=== PATIENT | male | born 1935 | race Two or more races ===

== ENCOUNTER 2024-04-20 18:33 | Inpatient (IN) | payer OTHER, MEDICARE ==
[~2024-04-20] VITALS: Ht 167.6 cm; Wt 58.9 kg
--- NOTE | 2024-04-20 18:48 | ECG ---
[facility] Test Date: 2024-04-20 Test Time: 18:40:18 Pat Name: ANALILIA SOLOMON Department: er Room: 0220T Gender: M Pharmacist Manager: gp : 1935 Requested By: KIMBER CRUZ Order Number: [id number] Reading MD: Len Pires Measurements Intervals [place] Rate: 67 P: 125 [place]: 210 QRS: -29 QRSD: 134 T: 100 QT: 500 QTc: 528 Interpretive Statements Atrial-ventricular dual-paced rhythm No further analysis attempted due to paced rhythm Electronically Signed On 04-22-2024 17:48:02 PST by Len Pires Please click the below link to view image of tracing.
--- NOTE | 2024-04-20 18:56 | ED.PDOC ---
HPI Comments HPI: Poor Historian. 88-year-old male brought in by ambulance from per 's/caregiver request stating that the patient is having chest pain and shortness of breath/congestion. Patient himself denies any symptoms. No family members available at bedside at this time. Per EMS vital signs were stable prior to arrival. Vitals: temperature of 98.9F, respiratory rate of 16, SpO2 of 100%RA, pulse rate of 66, blood pressure of 118/87. Past Medical History: Alzheimer's, MVP, COPD, HLD Past Surgical History: pacemaker, CABG REVIEW OF SYSTEMS: CONSTITUTIONAL: Denies acute: fever, diaphoresis, chills, HEAD: Denies acute: headache, photophobia Eyes: Denies acute: Double vision, vision loss, eye pain, eye discharge. EARS: Denies acute: tinnitus, hearing loss, ear discharge, ear pain, THROAT: Denies acute: sore throat, swelling, difficulty swallowing , pain with swallowing, change in voice. NECK: Denies acute: neck pain, neck swelling, stiff neck. HEART: Denies acute : palpitations, LUNGS: Denies acute: wheezing, cough, hemoptysis ABDOMEN: Denies acute: abdominal pain, Nausea, Vomiting, diarrhea, melena , hematemesis, hematochezia SKIN: Denies acute: rash, redness, lesions, itchiness. EXTREMITIES: Denies acute: calf pain, numbness, tingling, weakness, denies pain in extremity. Denies acute: Low back pain. Neuro: Denies acute: focal neurological deficit, motor or sensory focal neurological deficit, tremors, seizure like activity, confusion, dizziness, change in mental status, loss of bowel or bladder function, cauda equina like symptoms. : Denies acute: dysuria, hematuria, flank pain, increase in urinary frequency. PSYCH: Denies acute: hallucination, suicidal ideation, homicidal ideation. PHYSICAL EXAM: General: no acute distress, awake and alert. Head: normocephalic, atraumatic. Neck: supple, trachea is midline, no swelling. Throat: Normal phonation. Eyes:, no erythema, no purulent discharge, no proptosis, no icterus. Heart: regular rate, regular rhythm, no significant murmur appreciated. Noted mechanical click Lungs: no apparent respiratory distress, Able to speak in full sentences. No wheezing, no rhonchi, no crackles. No stridors Clear to auscultation bilaterally. Abdomen: non tender to palpation, non distended, soft, no guarding, no rebound, + bowel sounds. Neuro: Awake, Alert, oriented to name, self, situation, follows commands GCS=15. Speech is normal. Skin: no petechia, no purpura, no cyanosis, non-pale, not jaundice. Lower extremities: --no - Pitting edema no deformity, no focal swelling, no calf TTP. Makes eye contact. moves all four extremities. Face: no apparent facial droop. ED COURSE: Time Seen by MD: 18:37 Reviewed Notes: Nurses Notes, Allergies Allergies: Coded Allergies: Acetaminophen (Verified Allergy, Unknown, 04/20/24) Hydrocodone (Verified Allergy, Unknown, 04/20/24) Uncoded Allergies: prosac (Allergy, Unknown, 04/20/24) Information Source: Patient Was a procedure done? Was a procedure done?: No CP Differential Dx Differential Diagnosis: N/A Differential Diagnosis: Other (Ddx include but not limitied to gastritis, musculoskeletal pain, radiculopathy, atypical chest pain, dissection, aneurysm, ACS, unstable angina, hiatal hernia, GERD, anxiety, costochondritis, PE, pneumothroax, neoplasm, cardiac ischemia, drug abuse, anemia.) X-Ray, Labs, Meds, VS Vital Signs Date Time Temp Pulse Resp B/P (MAP) Pulse Ox O2 Delivery O2 Flow Rate FiO2 04/20/24 22:10 67 20 144/67 (92) 100 04/20/24 22:10 67 20 100 Nasal Cannula* 2 28 04/20/24 20:42 97.0 72 16 149/73 (98) 93 97.0 04/20/24 18:53 67 04/20/24 18:40 98.9 66 16 118/87 (97) 100 Lab Test 04/20/24 22:06 04/20/24 19:56 04/20/24 19:03 04/20/24 18:50 Range/Units Troponin I High Sensitivity 6 5 5 </=54 ng/L White Blood Count 7.4 4.4-10.8 10^3/uL Red Blood Count 4.67 4.5-5.90 10^6/uL Hemoglobin 13.6 13.5-17.5 g/dL Hematocrit 39.9 L 41.0-53.0 % Mean Corpuscular Volume 85.5 80.0-100.0 fL Mean Corpuscular Hemoglobin 29.1 28.0-32.0 pg Mean Corpuscular Hemoglobin Concent 34.0 32.0-36.0 g/dL Red Cell Distribution Width 15.2 H 11.8-14.3 % Platelet Count 205 140-450 10^3/uL Mean Platelet Volume 7.0 6.9-10.8 fL Neutrophils (%) (Auto) 63.2 37.0-80.0 % Lymphocytes (%) (Auto) 17.7 10.0-50.0 % Monocytes (%) (Auto) 14.5 H 0.0-12.0 % Eosinophils (%) (Auto) 3.2 0.0-7.0 % Basophils (%) (Auto) 1.4 0.0-2.0 % Neutrophils # (Auto) 4.7 1.6-8.6 10 ^3/uL Lymphocytes # (Auto) 1.3 0.4-5.4 10 ^3/uL Monocytes # (Auto) 1.1 0-1.3 10 ^3/uL Eosinophils # (Auto) 0.2 0-0.8 10 ^3/uL Basophils # (Auto) 0.1 0-0.2 10 ^3/uL Nucleated Red Blood Cells 0.1 % Prothrombin Time 34.5 H 9.3-11.8 sec Prothrombin Time INR 3.71 H 0.9-1.15 Activated Partial Thromboplast Time 35.9 H 24.5-34.5 SEC Sodium Level 140 136-145 mmol/L Potassium Level 4.4 3.5-5.1 mmol/L Chloride Level 105 98-107 mmol/L Carbon Dioxide Level 28 20-31 mmol/L Anion Gap 7 5-15 Blood Urea Nitrogen 18 9-23 mg/dL Creatinine 1.20 0.700-1.30 mg/dL Glomerular Filtration Rate Calc 59 >90 mL/min BUN/Creatinine Ratio 15.0 10.0-20.0 Serum Glucose 140 H 74-106 mg/dL Calcium Level 9.9 8.7-10.4 mg/dL Total Bilirubin 0.4 0.2-1.0 mg/dL Aspartate Amino Transferase (AST) 14 13-40 U/L Alanine Aminotransferase (ALT) 14 7-40 U/L Alkaline Phosphatase 59 46-116 U/L B-Type Natriuretic Peptide 147.10 0-100 pg/mL Total Protein 6.8 5.7-8.2 g/dL Albumin 4.1 3.2-4.8 g/dL Lactic Acid Level 1.3 0.4-2.0 mmol/L [facility] [id number] [place] [address] Ph: [phone] DIAGNOSTIC IMAGING Diagnostic Imaging Report : [id number] Signed PATIENT: ANALILIA SOLOMON ACCT: [id number] UNIT: [id number] : 1935 LOC: ER ROOM / BED: / AGE / SEX: 88 / M ADM STATUS: REG ER SERVICE 44 ORDERING PHYSICIAN: KIMBER CRUZ DO PROCEDURE(s): CXRP - CHEST PORTABLE REASON: cp/sob ORDER NUMBER(s): [id number], ACCESSION NUMBER(s): [id number] EXAM: XY CHEST PORTABLE TECHNIQUE: Single frontal chest radiograph CLINICAL HISTORY: cp/sob COMPARISON: None Findings/Impression: Frontal chest radiograph demonstrates no acute osseous or superficial soft tissue abnormalities. Left chest wall dual chamber pacemaker. The trachea is midline. The cardiac silhouette and mediastinum are within normal limits. Right upper lung field pleural plaques. No pneumothorax, pleural effusions, or consolidations. ATED BY: ALINA RIVAS DO DICTATED DATE/TIME: 04/20/241916 SIGNED BY: ALINA RIVAS DO SIGNED DATE/TIME: 04/20/241916 CC: Time of 1ST Reevaluation: 02:44 Reevaluation 1ST: Resolved Patient Education/Counseling: Diagnosis, Treatment Family Education/Counseling: No Family Present Comments Patient presented with the above HPI.--chest pain/shortness of---workup was initiated. patient was found with the above mentioned diagnosis. the following medications were ordered: please refer to order lists of meds and tests obtained by myself Dr. Cruz. Patient ED course and VS have been stabilized. Patient has been reassessed in the ED and remained in a stable condition. Patient/family voices understanding and is agreeable with plan. Patient has been observed in the ED adequate length of time to insure improvement/stability. Escalation of care considered: Consideration of escalation to observation or admission Patient was ADMITTED to the medicine team for further evaluation and treatment of their presentation. Patient was already on Coumadin. All the reports of any imaging studies that were ordered by myself were reviewed by myself. Departure 1 Departure Time of Disposition: 22:33 Impression: Primary Impression: Chest pain Disposition: ADMITTED INPATIENT Admit to: Tele Condition: Guarded Discharged With: Self Critical Care Note Critical Care Time?: No Heart Score Heart Score: Heart Score Response (Comments) Value History Slightly Suspicious 0 EKG N/A 0 Age >65 2 Risk Factors 1 or 2 risk factors 1 Troponin Normal limit 0 Total 3 I personally scribed for KIMBER CRUZ DO ([email or web address]) on 04/20/24 at 19:36. Electronically submitted by Anthony Rodriguez ([email or web address]). I personally scribed for KIMBER CRUZ DO ([email or web address]) on 04/20/24 at 19:48. Electronically submitted by Anthony Rodriguez [email or web address]). KIMBER CRUZ DO Apr 20, 2024 18:56
--- NOTE | 2024-04-20 19:19 | DVH ---
EXAM: XY CHEST PORTABLE TECHNIQUE: Single frontal chest radiograph CLINICAL HISTORY: cp/sob COMPARISON: None Findings/Impression: Frontal chest radiograph demonstrates no acute osseous or superficial soft tissue abnormalities. Left chest wall dual chamber pacemaker. The trachea is midline. The cardiac silhouette and mediastinum are within normal limits. Right upper lung field pleural plaques. No pneumothorax, pleural effusions, or consolidations.
[2024-04-20 19:31] LABS: Basophils # (auto) 0.1 10 ^3/uL (0-0.2); Basophils % (auto) 1.4 % (0.0-2.0); Eosinophils # (auto) 0.2 10 ^3/uL (0-0.8); Eosinophils % (auto) 3.2 % (0.0-7.0); Hematocrit 39.9 % (41.0-53.0); Hemoglobin 13.6 g/dL (13.5-17.5); Lymphocytes # (auto) 1.3 10 ^3/uL (0.4-5.4); Lymphocytes % (auto) 17.7 % (10.0-50.0); Mean Corpuscular Hemoglobin 29.1 pg (28.0-32.0); Mean Corpuscular Volume 85.5 fL (80.0-100.0); Monocytes # (auto) 1.1 10 ^3/uL (0-1.3); Monocytes % (auto) 14.5 % (0.0-12.0); Neutrophils # (auto) 4.7 10 ^3/uL (1.6-8.6); Neutrophils % (auto) 63.2 % (37.0-80.0); Nucleated Red Blood Cells % 0.1 %; Platelet Count (auto) 205 10^3/uL (140-450); Red Blood Cells 4.67 10^6/uL (4.5-5.90); Red Cell Distribution Width 15.2 % (11.8-14.3); White Blood Cell 7.4 10^3/uL (4.4-10.8)
[2024-04-20 19:46] LABS: INR 3.71 (0.9-1.15); Partial Thromboplastin Time 35.9 SEC (24.5-34.5); Prothrombin Time 34.5 sec (9.3-11.8)
[2024-04-20 19:54] LABS: Alanine Aminotransferase 14 U/L (7-40); Albumin 4.1 g/dL (3.2-4.8); Alkaline Phosphatase 59 U/L (46-116); Anion Gap 7 (5-15); Aspartate Aminotransferase 14 U/L (13-40); Bilirubin, Total 0.4 mg/dL (0.2-1.0); Blood Urea Nitrogen 18 mg/dL (9-23); Calcium 9.9 mg/dL (8.7-10.4); Carbon Dioxide 28 mmol/L (20-31); Chloride 105 mmol/L (98-107); Potassium 4.4 mmol/L (3.5-5.1); Sodium 140 mmol/L (136-145); Total Protein 6.8 g/dL (5.7-8.2)
[2024-04-20 20:05] LABS: Glucose 140 mg/dL (74-106)
[2024-04-20 22:10] VITALS: PULSE 67; RESP 20; O2SAT 100
--- NOTE | 2024-04-20 22:56 | DVHHP2 ---
History of Present Illness Reason for Visit: Chest pain History of Present Illness The patient is a 88-year-old male with past medical history of Alzheimer's disease, COPD, HLD, and MVP presented to [facility] ED accompanied by /caregiver for evaluation of chest pain shortness of breaths, and congest ion. Patient was seen and evaluated in the ED, laboratory data shows WBC 7.4, platelets 205, sodium 140, potassium 4.4,, BUN 18, creatinine 1.20, GFR 59, glucose 140, troponin 5, lactic acid 1.3, BNP 147.10, PTT 34.5 INR 3.71, PTT 35.9, blood pressure 149/73, heart rate 72, temperature 97.2 F, O2 saturation 93% oxygen. Chest x-ray show no pneumothorax, pleural effusions or consol idations. Please see medication orders section in the computer. On my assessment, patient denied chest pain, no, no dizziness, currently on oxygen, no nausea, no vomiting, no fever, no chills. Patient was admitted for further evaluation and medical management. Past Medical History Alzheimer's, MVP, COPD, HLD Past Surgical History Pacemaker, CABG Family History Reviewed, noncontributory to the management of this case. Past Social History The patient lives at home, denies smoking, alcohol or illicit drugs abuse. Review of Systems Constitutional: Yes: Weakness; No: Fever, Chills, Sweats, Malaise, Other Eyes: No: Pain, Vision change, Conjunctivae inflammation, Eyelid inflammation, Other, Redness ENT: No: Ear pain, Ear discharge, Nose pain, Nose discharge, Nose congestion, Mouth pain, Mouth swelling, Throat pain, Throat swelling, Other Respiratory: No: Cough, Dry, Shortness of breath, SOB with excertion, Wheezing, Hemoptysis, Pleuritic Pain, Sputum, Wheezing, Other Cardiovascular: Chest Pain; No: Palpitations, Orthopnea, Paroxysmal Noc. Dyspnea, Edema, Lt Headedness, Other Gastrointestinal: No: Nausea, Vomiting, Abdominal Pain, Diarrhea, Constipation, Melena, Hematochezia, Other Genitourinary: No Dysuria, No Frequency, No Incontinence, No Hematuria, No Retention, No Other Musculoskeletal: No: other, neck pain, shoulder pain, arm pain, back pain, hand pain, leg pain, foot pain Skin: No: Rash, Lesions, Jaundice, Bruising, Other Neurological: No: Weakness, Numbness, Incoordination, Change in speech, Confusion, Seizures, Other Allergies: Coded Allergies: Acetaminophen (Verified Allergy, Unknown, 04/20/24) Hydrocodone (Verified Allergy, Unknown, 04/20/24) Uncoded Allergies: prosac (Allergy, Unknown, 04/20/24) Exam Vital Signs Vital Signs Date Time Temp Pulse Resp B/P (MAP) Pulse Ox O2 Delivery O2 Flow Rate FiO2 04/20/24 22:10 67 20 144/67 (92) 100 04/20/24 22:10 Nasal Cannula* 2 28 04/20/24 20:42 97.0 97.0 General Appearance: Alert, Oriented X3, Cooperative, No acute distress HEENT: Atraumatic, PERRLA, EOMI, Mucous membr. moist/pink Respiratory: Clear to auscultation, Normal air movement Cardiovascular: Regular rate, Normal S1, Normal S2, No murmurs Abdominal: Normal bowel sounds, Soft, No tenderness, No hepatospenomegaly, No masses Extremities: No clubbing, No cyanosis, No edema, Normal pulses, No tenderness/swelling Skin: No rashes, No breakdown, No significant lesion Neuro: Normal speech, Normal tone, Sensation intact, Cranial nerves 3-12 NL, Reflexes 2+ Psych/Mental Status: Mental status NL, Mood NL Labs/Xrays Labs Test 04/20/24 22:06 04/20/24 19:03 04/20/24 18:50 Range/Units Troponin I High Sensitivity 6 </=54 ng/L White Blood Count 7.4 4.4-10.8 10^3/uL Red Blood Count 4.67 4.5-5.90 10^6/uL Hemoglobin 13.6 13.5-17.5 g/dL Hematocrit 39.9 L 41.0-53.0 % Mean Corpuscular Volume 85.5 80.0-100.0 fL Mean Corpuscular Hemoglobin 29.1 28.0-32.0 pg Mean Corpuscular Hemoglobin Concent 34.0 32.0-36.0 g/dL Red Cell Distribution Width 15.2 H 11.8-14.3 % Platelet Count 205 140-450 10^3/uL Mean Platelet Volume 7.0 6.9-10.8 fL Neutrophils (%) (Auto) 63.2 37.0-80.0 % Lymphocytes (%) (Auto) 17.7 10.0-50.0 % Monocytes (%) (Auto) 14.5 H 0.0-12.0 % Eosinophils (%) (Auto) 3.2 0.0-7.0 % Basophils (%) (Auto) 1.4 0.0-2.0 % Neutrophils # (Auto) 4.7 1.6-8.6 10 ^3/uL Lymphocytes # (Auto) 1.3 0.4-5.4 10 ^3/uL Monocytes # (Auto) 1.1 0-1.3 10 ^3/uL Eosinophils # (Auto) 0.2 0-0.8 10 ^3/uL Basophils # (Auto) 0.1 0-0.2 10 ^3/uL Nucleated Red Blood Cells 0.1 % Prothrombin Time 34.5 H 9.3-11.8 sec Prothrombin Time INR 3.71 H 0.9-1.15 Activated Partial Thromboplast Time 35.9 H 24.5-34.5 SEC Sodium Level 140 136-145 mmol/L Potassium Level 4.4 3.5-5.1 mmol/L Chloride Level 105 98-107 mmol/L Carbon Dioxide Level 28 20-31 mmol/L Anion Gap 7 5-15 Blood Urea Nitrogen 18 9-23 mg/dL Creatinine 1.20 0.700-1.30 mg/dL Glomerular Filtration Rate Calc 59 >90 mL/min BUN/Creatinine Ratio 15.0 10.0-20.0 Serum Glucose 140 H 74-106 mg/dL Calcium Level 9.9 8.7-10.4 mg/dL Total Bilirubin 0.4 0.2-1.0 mg/dL Aspartate Amino Transferase (AST) 14 13-40 U/L Alanine Aminotransferase (ALT) 14 7-40 U/L Alkaline Phosphatase 59 46-116 U/L B-Type Natriuretic Peptide 147.10 0-100 pg/mL Total Protein 6.8 5.7-8.2 g/dL Albumin 4.1 3.2-4.8 g/dL Lactic Acid Level 1.3 0.4-2.0 mmol/L PATIENT: ANALILIA SOLOMON ACCT: [id number] UNIT: [id number] : 1935 LOC: ER ROOM / BED: / AGE / SEX: 88 / M ADM STATUS: REG ER SERVICE 1845 ORDERING PHYSICIAN: KIMBER CRUZ DO PROCEDURE(s): CXRP - CHEST PORTABLE REASON: cp/sob ORDER NUMBER(s): [id number], ACCESSION NUMBER(s): [id number] EXAM: XY CHEST PORTABLE TECHNIQUE: Single frontal chest radiograph CLINICAL HISTORY: cp/sob COMPARISON: None Findings/Impression: Frontal chest radiograph demonstrates no acute osseous or superficial soft tissue abnormalities. Left chest wall dual chamber pacemaker. The trachea is midline. The cardiac silhouette and mediastinum are within normal limits. Right upper lung field pleural plaques. No pneumothorax, pleural effusions, or consolidations. Assessment/Plan Assessment/Plan Chest pain Generalized weakness Plan 1. Admit to telemetry unit 2. Breathing treatment 3. Pain control management 4. Management of fluids and electrolytes 5. Consultation for hospitalist 6. Diagnostic tests chest x-ray 7. DVT prophylaxis-on SCDs 8. Repeat labs CBC, CMP in a.m. 9. Continue with current medical management 10. Treatment plan discussed with patient and RN. Patient verbalized understanding. Plan discussed with: Patient, Other (RN) My Orders Orders - SUSSY TORRES DNP Procedure Category Date Status Time Admit ADMIT 04/20/24 Verified 22:47 Allergies TURNER 04/20/24 Verified 22:47 Code Status CODE 04/20/24 Verified 22:47 Sodium Chloride Lock PHA 04/21/24 Verified (Saline Lock Ns) 06:00 Oxygen Per Hour RT 04/20/24 Verified 22:47 Ondansetron Hcl PHA 04/20/24 Verified (Zofran) 23:00 Docusate Sodium PHA 04/20/24 Verified Capsule (Colace 23:00 Fall Risk Precautions TURNER 04/20/[address] 22:47 Complete Blood Count LAB 04/21/24 Verified 04:00 Comprehensive LAB 04/21/24 Verified Metabolic Panel 04:00 Cardiac DIET 04/21/24 Verified Diet-2gna,Lofat,Lochol Breakfast Condition: Serious TURNER 04/20/24 Verified 22:47 Sequential TURNER 04/20/24 Verified Compression Device Nitroglycerin PHA 04/20/24 Verified Sublingual (Ntrostat 23:00 Stat Ekg For Chest TURNER 04/20/24 Verified Pain 22:47 Notify Md Of Changes TURNER 04/20/24 Verified From Base 22:47 Restaurant Hourly Manager For [facility] 04/20/24 Verified 24 Hours 22:47 Emergency Dysrhythmia [facility] 04/20/24 Verified Protocol 22:47 Rhythm Strips Once [facility] 04/20/24 Verified Every Shift 22:47 Oxygen By Nasal RT 04/20/24 Verified Cannula 22:47 Problem List: (1) Chest pain (2) Generalized weakness Date of Service: Apr 20, 2024 Billing Provider: SUSSY TORRES DNP Common Visit Codes: [id number] INP/OBS CARE (HIGH) SUSSY TORRES DNP Apr 20, 2024 22:56
[2024-04-20] MEDS ORDERED: NITROGLYCERIN 0.4 MG SL TAB SL PRN (23:00)
[2024-04-20] MEDS ORDERED: DOCUSATE SOD 100 MG CAP PO PRN (23:00)
[2024-04-20] MEDS ORDERED: ONDANSETRON HCL 4 MG/2 ML VIAL IV PRN (23:00)
[2024-04-21 04:40] LABS: Basophils # (auto) 0.1 10 ^3/uL (0-0.2); Basophils % (auto) 1.2 % (0.0-2.0); Eosinophils # (auto) 0.3 10 ^3/uL (0-0.8); Eosinophils % (auto) 3.9 % (0.0-7.0); Hematocrit 41.2 % (41.0-53.0); Hemoglobin 13.7 g/dL (13.5-17.5); Lymphocytes # (auto) 1.2 10 ^3/uL (0.4-5.4); Lymphocytes % (auto) 16.6 % (10.0-50.0); Mean Corpuscular Hemoglobin 28.5 pg (28.0-32.0); Mean Corpuscular Hgb Conc. 33.3 g/dL (32.0-36.0); Mean Corpuscular Volume 85.5 fL (80.0-100.0); Monocytes % (auto) 13.4 % (0.0-12.0); Neutrophils # (auto) 4.8 10 ^3/uL (1.6-8.6); Neutrophils % (auto) 64.9 % (37.0-80.0); Nucleated Red Blood Cells % 0.2 %; Platelet Count (auto) 198 10^3/uL (140-450); Red Blood Cells 4.82 10^6/uL (4.5-5.90); White Blood Cell 7.4 10^3/uL (4.4-10.8)
[2024-04-21 04:58] LABS: Alanine Aminotransferase 16 U/L (7-40); Albumin 3.8 g/dL (3.2-4.8); Alkaline Phosphatase 57 U/L (46-116); Anion Gap 9 (5-15); BUN/Creatinine Ratio 18.1 (10.0-20.0); Bilirubin, Total 0.7 mg/dL (0.2-1.0); Blood Urea Nitrogen 19 mg/dL (9-23); Calcium 9.6 mg/dL (8.7-10.4); Carbon Dioxide 28 mmol/L (20-31); Chloride 105 mmol/L (98-107); Sodium 142 mmol/L (136-145); Total Protein 6.2 g/dL (5.7-8.2)
[2024-04-21 05:03] LABS: Aspartate Aminotransferase 13 U/L (13-40); Glucose 110 mg/dL (74-106)
[2024-04-21] MEDS: SODIUM CHLOR 0.9% PF (SALINE LOCK) 10ML VIAL/SYR IV SCH (06:01)
[2024-04-21 08:00] VITALS: PULSE 60; RESP 16; O2SAT 99
[2024-04-21 09:04] LABS: Urine Bacteria None Seen /hpf (None Seen)
[2024-04-21 09:21] LABS: Urine Blood Negative /uL (Negative); Urine Clarity Clear (Clear); Urine Color Light-Yellow (Yellow); Urine Protein, UAD Negative (Negative); Urine Specific Gravity 1.014 (1.001-1.035); Urine Squamous Epithelial Cell None Seen /hpf (<5); Urine Urobilinogen Normal (Negative); Urine WBC < 1 /HPF (0-3)
--- NOTE | 2024-04-21 10:09 | DVHPN2 ---
Subjective Unclear if the patient is still having chest pain/shortness of breath; patient is confused; baseline oriented to Reviewed: Care Plan, H&P, Labs, Medications, Previous Orders, Radiology Changes from previous H/P or p: Changes Objective Vitals Vital Signs Date Time Temp Pulse Resp B/P (MAP) Pulse Ox O2 Delivery O2 Flow Rate FiO2 04/21/24 08:26 79 04/21/24 07:00 15 136/70 (92) 95 04/21/24 03:00 97.4 97.4 04/20/24 22:10 Nasal Cannula* 04 21 General Appearance: Alert, Cooperative, Other (Oriented to ) HEENT: Atraumatic Lungs: Clear to auscultation, Normal air movement Chest/Breasts: Other (Pacemaker in place) Cardiovascular: Regular rate, Normal S1, Normal S2, Other (Mechanical heart sounds) Abdomen: Normal bowel sounds, Soft, No tenderness Neuro: Normal speech, Cranial nerves 3-12 NL Medications Current Medications Medications Dose Ordered Sig/Brianna Route Start Time Stop Time Status Last Admin Dose Admin Sodium Chloride 10 ml Q8HR IV 04/21/24 06:00 04/21/24 06:01 10 ML Ondansetron HCl 4 mg Q4HP PRN IV 04/20/24 23:00 Docusate Sodium 100 mg BIDPRN PRN PO 04/20/24 23:00 Nitroglycerin 0.4 mg Q5MINP PRN SL 04/20/24 23:00 Laboratory Results Laboratory Tests 04/21/24 04:19 Chemistry Test 04/20/24 19:03 04/21/24 04:19 Albumin 4.1 g/dL (3.2-4.8) 3.8 g/dL (3.2-4.8) Calcium Level 9.9 mg/dL (8.7-10.4) 9.6 mg/dL (8.7-10.4) Total Protein 6.8 g/dL (5.7-8.2) 6.2 g/dL (5.7-8.2) Coagulation Test 04/20/24 19:03 Prothrombin Time 34.5 sec (9.3-11.8) H Prothrombin Time INR 3.71 (0.9-1.15) H Activated Partial Thromboplast Time 35.9 SEC (24.5-34.5) H Cardiac Markers Test 04/20/24 19:03 B-Type Natriuretic Peptide 147.10 pg/mL (0-100) LFT Test 04/20/24 19:03 04/21/24 04:19 Alanine Aminotransferase (ALT) 14 U/L (7-40) 16 U/L (7-40) Alkaline Phosphatase 59 U/L (46-116) 57 U/L (46-116) Aspartate Amino Transferase (AST) 14 U/L (13-40) 13 U/L (13-40) Total Bilirubin 0.4 mg/dL (0.2-1.0) 0.7 mg/dL (0.2-1.0) Urinalysis Test 04/21/24 09:00 Urine Color Light-yellow (Yellow) Urine Clarity Clear (Clear) Urine pH 6.0 (5.0-9.0) Urine Specific [place] 1.014 (1.001-1.035) Urine Protein Negative (Negative) Urine Ketones Negative (Negative) Urine Blood Negative /uL (Negative) Urine Nitrite Negative (Negative) Urine Bilirubin Negative (Negative) Urine Urobilinogen Normal mg/dL (Negative) Urine Leukocyte Esterase Negative /uL (Negative) Urine RBC 2 /hpf (0 - 3) Urine Microscopic WBC < 1 /HPF (0-3) Urine Squamous Epithelial Cells None seen /hpf (<5) Urine Bacteria None seen /hpf (None Seen) Urine Glucose Normal mg/dL (Normal) Labs and/or images reviewed: Labs reviewed by me, Image(s) reviewed by me Assessment/Plan Assessment/Plan An 88-year-old male patient; with multiple comorbidities; who was brought to the ER by his family for shortness of breath and chest pain Chest pain and shortness of breath; unknown etiology; normal troponin levels; no ischemic changes on EKG; normal chest x-ray; telemetry; continue monitoring #Mitral valve disease status post mechanical mitral valve replacement; warfarin as per pharmacy; no warfarin for now due to supratherapeutic INR; continue monitoring #Supratherapeutic INR of 3.7; no signs/symptoms of active bleeding; continue monitoring #Status post pacemaker; telemetry; continue monitoring #Dementia; is caregiver; no behavioral changes; continue monitoring #Discharge planning; consulted Mri Manager Goals of care discussed with the patient's for 20 minutes; full code Late Entry. This medical document was created using an electronic medical record system with computerized dictation system. Although this document has been carefully reviewed, there might still be some phonetic and typographical errors. These areas are purely typographical due to imperfections of the software programs, and do not reflect any compromise in the patient's medical care. Plan discussed with: Spouse, Other (Nurse) Date of Service: Apr 21, 2024 Billing Provider: MADAI BSAS MD Common Visit Codes: [id number] INP/OBS CARE(HIGH) Secondary Visit Codes: [id number] CARE PLAN 30 MINUTES (20 minutes) MADAI BASS MD Apr 21, 2024 10:09
[2024-04-21 19:12] VITALS: PULSE 111; RESP 16; O2SAT 100
[2024-04-21] MEDS: diphenhdrAMINE HCL 50 MG/1 ML VL IV ONE (20:09)
[2024-04-22 01:00] VITALS: BP 110/68; TEMP 97.9; O2SAT 92
[2024-04-22 08:00] VITALS: PULSE 63; PULSE 70; RESP 16; O2SAT 94
[2024-04-22 09:00] VITALS: BP 130/66; PULSE 68; RESP 18; TEMP 97.9; O2SAT 97
[2024-04-22 13:00] VITALS: BP 107/60; PULSE 76; RESP 18; O2SAT 96
[2024-04-22] MEDS ORDERED: SIMV40TA18 PO (15:58)
[2024-04-22] MEDS ORDERED: MULT-1018 PO (15:58)
[2024-04-22] MEDS ORDERED: CALC667C PO (15:58)
[2024-04-22] MEDS ORDERED: SOTA80TA PO (15:58)
[2024-04-22] MEDS ORDERED: WARF-66 PO (15:58)
[2024-04-22] MEDS: LORazepam 2MG/ML-1ML VIAL IV PRN (16:24)
[2024-04-22 17:09] VITALS: BP 110/53; PULSE 75; RESP 18; TEMP 98; O2SAT 96
[2024-04-22 20:00] VITALS: PULSE 76; O2SAT 94
--- NOTE | 2024-04-22 21:41 | DVHPN2 ---
Subjective Patient is agitated Reviewed: Care Plan, H&P, Labs, Medications, Previous Orders, Radiology Changes from previous H/P or p: Changes Objective Vitals Vital Signs Date Time Temp Pulse Resp B/P (MAP) Pulse Ox O2 Delivery O2 Flow Rate FiO2 04/22/24 17:09 98.0 75 18 110/53 (72) 96 98.0 04/22/24 08:00 Room Air* 0 21 Intake/Output Intake and Output 04/22/24 07:00 Output Total 30 ml Balance -30 ml Output Urine Total 30 ml General Appearance: Alert, Cooperative, Other (Oriented to ) HEENT: Atraumatic Lungs: Clear to auscultation, Normal air movement Chest/Breasts: Other (Pacemaker in place) Cardiovascular: Regular rate, Normal S1, Normal S2, Other (Mechanical heart sounds) Abdomen: Normal bowel sounds, Soft, No tenderness Neuro: Normal speech, Cranial nerves 3-12 NL Medications Current Medications Medications Dose Ordered Sig/Brianna Route Start Time Stop Time Status Last Admin Dose Admin Sodium Chloride 10 ml Q8HR IV 04/21/24 06:00 04/22/24 14:06 10 ML Ondansetron HCl 4 mg Q4HP PRN IV 04/20/24 23:00 Docusate Sodium 100 mg BIDPRN PRN PO 04/20/24 23:00 Nitroglycerin 0.4 mg Q5MINP PRN SL 04/20/24 23:00 Lorazepam 0.5 mg Q4HP PRN IV 04/22/24 15:45 04/22/24 16:24 0.5 MG Laboratory Results Laboratory Tests 04/21/24 04:19 Urinalysis Test 04/21/24 09:00 Urine Color Light-yellow (Yellow) Urine Clarity Clear (Clear) Urine pH 6.0 (5.0-9.0) Urine Specific [place] 1.014 (1.001-1.035) Urine Protein Negative (Negative) Urine Ketones Negative (Negative) Urine Blood Negative /uL (Negative) Urine Nitrite Negative (Negative) Urine Bilirubin Negative (Negative) Urine Urobilinogen Normal mg/dL (Negative) Urine Leukocyte Esterase Negative /uL (Negative) Urine RBC 2 /hpf (0 - 3) Urine Microscopic WBC < 1 /HPF (0-3) Urine Squamous Epithelial Cells None seen /hpf (<5) Urine Bacteria None seen /hpf (None Seen) Urine Glucose Normal mg/dL (Normal) Labs and/or images reviewed: Labs reviewed by me, Image(s) reviewed by me Assessment/Plan Assessment/Plan An 88-year-old male patient; with multiple comorbidities; who was brought to the ER by his family for shortness of breath and chest pain #Agitation in the setting of dementia; most likely due to delirium; started on low-dose Ativan as needed; continue monitoring #Chest pain and shortness of breath; unknown etiology; normal troponin levels; no ischemic changes on EKG; normal chest x-ray; telemetry; continue monitoring #Mitral valve disease status post mechanical mitral valve replacement; warfarin as per pharmacy; no warfarin for now due to supratherapeutic INR; continue monitoring #Supratherapeutic INR of 3.7; no signs/symptoms of active bleeding; continue monitoring #Status post pacemaker; telemetry; continue monitoring #Arrhythmias; to continue holding sotalol due to fluctuating heart rate; telemetry; continue monitoring #Dyslipidemia; to restart home simvastatin upon discharge; continue monitoring #Dementia; is caregiver; no behavioral changes; continue monitoring #Discharge planning; consulted [employer] Super[employer] Possible discharge tomorrow if INR within therapeutic range Late Entry. This medical document was created using an electronic medical record system with computerized dictation system. Although this document has been carefully reviewed, there might still be some phonetic and typographical errors. These areas are purely typographical due to imperfections of the software programs, and do not reflect any compromise in the patient's medical care. Plan discussed with: Spouse, Other (Nurse) My Orders Orders - MADAI BASS MD Procedure Category Date Status Time * Dietary Consult CONS 04/22/24 Transmitted 02:03 Lorazepam 2mg/Ml Inj PHA 04/22/24 In Process (Ativan Inj) 15:45 * [employer] Supervisor CONS 04/22/24 Transmitted Consult Complete Blood Count LAB 04/23/24 Verified 04:00 Comprehensive LAB 04/23/24 Verified Metabolic Panel 04:00 Warfarin Per Rx PHA 04/22/24 Pending Protocol (Coumadin 21:30 Prothrombin Time W/ LAB 04/23/24 Verified INR 04:00 Date of Service: Apr 22, 2024 Billing Provider: MADAI BASS MD Common Visit Codes: [id number] INP/OBS CARE(HIGH) MADAI BASS MD Apr 22, 2024 21:41
[2024-04-23] VITALS (8 sets, daily range): BP systolic 89–142; BP diastolic 50–70; PULSE 70–99; RESP 17–19; TEMP 97.4–98.7; O2SAT 93–100
[2024-04-23 07:24] LABS: Basophils # (auto) 0.1 10 ^3/uL (0-0.2); Eosinophils # (auto) 0.1 10 ^3/uL (0-0.8); Eosinophils % (auto) 0.7 % (0.0-7.0); Hematocrit 41.9 % (41.0-53.0); Hemoglobin 13.8 g/dL (13.5-17.5); Lymphocytes # (auto) 1.1 10 ^3/uL (0.4-5.4); Lymphocytes % (auto) 11.9 % (10.0-50.0); Mean Corpuscular Hemoglobin 28.3 pg (28.0-32.0); Mean Corpuscular Volume 85.8 fL (80.0-100.0); Monocytes # (auto) 1.2 10 ^3/uL (0-1.3); Monocytes % (auto) 12.7 % (0.0-12.0); Neutrophils # (auto) 6.9 10 ^3/uL (1.6-8.6); Neutrophils % (auto) 73.7 % (37.0-80.0); Nucleated Red Blood Cells % 0.2 %; Platelet Count (auto) 200 10^3/uL (140-450); Red Blood Cells 4.88 10^6/uL (4.5-5.90); White Blood Cell 9.4 10^3/uL (4.4-10.8)
[2024-04-23 07:44] LABS: Prothrombin Time 37.8 sec (9.3-11.8)
[2024-04-23 07:46] LABS: Alanine Aminotransferase 13 U/L (7-40); Albumin 3.8 g/dL (3.2-4.8); Alkaline Phosphatase 59 U/L (46-116); Anion Gap 12 (5-15); BUN/Creatinine Ratio 18.7 (10.0-20.0); Bilirubin, Total 0.9 mg/dL (0.2-1.0); Calcium 9.7 mg/dL (8.7-10.4); Carbon Dioxide 25 mmol/L (20-31); Chloride 106 mmol/L (98-107); Glucose 101 mg/dL (74-106); Sodium 143 mmol/L (136-145); Total Protein 6.8 g/dL (5.7-8.2)
[2024-04-23 07:49] LABS: Aspartate Aminotransferase 11 U/L (13-40); Blood Urea Nitrogen 26 mg/dL (9-23)
[2024-04-23 08:15] LABS: INR 4.1 (0.9-1.15)
--- NOTE | 2024-04-23 12:31 | DVHPN2 ---
Subjective Patient is confused; no agitation Reviewed: Care Plan, H&P, Labs, Medications, Previous Orders, Radiology Changes from previous H/P or p: Changes Objective Vitals Vital Signs Date Time Temp Pulse Resp B/P (MAP) Pulse Ox O2 Delivery O2 Flow Rate FiO2 04/23/24 09:58 87 113/56 (75) 04/23/24 09:00 98.2 17 93 98.2 04/23/24 08:05 Room Air* 0 21 Intake/Output Intake and Output 04/23/24 07:00 Intake Total 145 ml Output Total 1000 ml Balance -855 ml Intake Oral 145 ml Output Urine Total 1000 ml # Voids 1 General Appearance: Alert, Cooperative, Other (Oriented to ) HEENT: Atraumatic Lungs: Clear to auscultation, Normal air movement Chest/Breasts: Other (Pacemaker in place) Cardiovascular: Regular rate, Normal S1, Normal S2, Other (Mechanical heart sounds) Abdomen: Normal bowel sounds, Soft, No tenderness Neuro: Normal speech, Cranial nerves 3-12 NL Medications Current Medications Medications Dose Ordered Sig/Brianna Route Start Time Stop Time Status Last Admin Dose Admin Sodium Chloride 10 ml Q8HR IV 04/21/24 06:00 04/23/24 06:01 10 ML Ondansetron HCl 4 mg Q4HP PRN IV 04/20/24 23:00 Docusate Sodium 100 mg BIDPRN PRN PO 04/20/24 23:00 Nitroglycerin 0.4 mg Q5MINP PRN SL 04/20/24 23:00 Lorazepam 0.5 mg Q4HP PRN IV 04/22/24 15:45 04/22/24 16:24 0.5 MG Warfarin Sodium RX PROTOCOL PER PHARMACY PO 04/22/24 21:30 Laboratory Results Laboratory Tests 04/23/24 06:55 Chemistry Test 04/23/24 06:55 Albumin 3.8 g/dL (3.2-4.8) Calcium Level 9.7 mg/dL (8.7-10.4) Total Protein 6.8 g/dL (5.7-8.2) Coagulation Test 04/23/24 06:55 Prothrombin Time 37.8 sec (9.3-11.8) H Prothrombin Time INR 4.10 (0.9-1.15) *H LFT Test 04/23/24 06:55 Alanine Aminotransferase (ALT) 13 U/L (7-40) Alkaline Phosphatase 59 U/L (46-116) Aspartate Amino Transferase (AST) 11 U/L (13-40) L Total Bilirubin 0.9 mg/dL (0.2-1.0) Urinalysis Test 04/21/24 09:00 Urine Color Light-yellow (Yellow) Urine Clarity Clear (Clear) Urine pH 6.0 (5.0-9.0) Urine Specific [place] 1.014 (1.001-1.035) Urine Protein Negative (Negative) Urine Ketones Negative (Negative) Urine Blood Negative /uL (Negative) Urine Nitrite Negative (Negative) Urine Bilirubin Negative (Negative) Urine Urobilinogen Normal mg/dL (Negative) Urine Leukocyte Esterase Negative /uL (Negative) Urine RBC 2 /hpf (0 - 3) Urine Microscopic WBC < 1 /HPF (0-3) Urine Squamous Epithelial Cells None seen /hpf (<5) Urine Bacteria None seen /hpf (None Seen) Urine Glucose Normal mg/dL (Normal) Labs and/or images reviewed: Labs reviewed by me, Image(s) reviewed by me Assessment/Plan Assessment/Plan An 88-year-old male patient; with multiple comorbidities; who was brought to the ER by his family for shortness of breath and chest pain #Agitation in the setting of dementia; most likely due to delirium; on low-dose Ativan as needed; continue monitoring #Chest pain and shortness of breath; unknown etiology; normal troponin levels; no ischemic changes on EKG; normal chest x-ray; telemetry; continue monitoring #Mitral valve 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 This medical document was created using an electronic medical record system with computerized dictation system. Although this document has been carefully reviewed, there might still be some phonetic and typographical errors. These areas are purely typographical due to imperfections of the software programs, and do not reflect any compromise in the patient's medical care. Plan discussed with: Spouse, Other (Nurse) My Orders Orders - MADAI BASS MD Procedure Category Date Status Time Lorazepam 2mg/Ml Inj PHA 04/22/24 In Process (Ativan Inj) 15:45 * [employer] CONS 04/22/24 Transmitted Consult Warfarin Per Rx PHA 04/22/24 In Process Protocol (Coumadin 21:30 Complete Blood Count LAB 04/24/24 Verified 04:00 PTPTT LAB 04/24/24 Verified 04:00 Creatinine LAB 04/24/24 Verified 04:00 Albumin LAB 04/24/24 Verified 04:00 Coumadin Per Pharmacy [facility] 04/23/24 In Process Protcol 08:43 Date of Service: Apr 23, 2024 Billing Provider: MADAI BASS MD Common Visit Codes: [id number] INP/OBS CARE(HIGH) MADAI BASS MD Apr 23, 2024 12:31
[2024-04-24 01:00] VITALS: BP 129/70; PULSE 91; RESP 17; TEMP 98; O2SAT 93
[2024-04-24 05:00] VITALS: BP 143/66; PULSE 103; RESP 18; TEMP 98.5; O2SAT 99
[2024-04-24 07:50] LABS: Alanine Aminotransferase 10 U/L (7-40); Alkaline Phosphatase 59 U/L (46-116); Anion Gap 10 (5-15); BUN/Creatinine Ratio 21.8 (10.0-20.0); Calcium 9.6 mg/dL (8.7-10.4); Carbon Dioxide 28 mmol/L (20-31); Chloride 106 mmol/L (98-107); Potassium 3.8 mmol/L (3.5-5.1); Sodium 144 mmol/L (136-145); Total Protein 7.1 g/dL (5.7-8.2)
[2024-04-24 07:51] LABS: Basophils # (auto) 0.1 10 ^3/uL (0-0.2); Basophils % (auto) 0.7 % (0.0-2.0); Bilirubin, Total 0.9 mg/dL (0.2-1.0); Eosinophils # (auto) 0.1 10 ^3/uL (0-0.8); Eosinophils % (auto) 1.2 % (0.0-7.0); Hematocrit 42.1 % (41.0-53.0); Hemoglobin 13.8 g/dL (13.5-17.5); INR 3.07 (0.9-1.15); Lymphocytes # (auto) 1.2 10 ^3/uL (0.4-5.4); Lymphocytes % (auto) 12.6 % (10.0-50.0); Mean Corpuscular Hemoglobin 28.3 pg (28.0-32.0); Mean Corpuscular Hgb Conc. 32.7 g/dL (32.0-36.0); Mean Corpuscular Volume 86.4 fL (80.0-100.0); Monocytes # (auto) 1.2 10 ^3/uL (0-1.3); Monocytes % (auto) 12.9 % (0.0-12.0); Neutrophils # (auto) 6.8 10 ^3/uL (1.6-8.6); Neutrophils % (auto) 72.6 % (37.0-80.0); Nucleated Red Blood Cells % 0.1 %; Partial Thromboplastin Time 38.7 SEC (24.5-34.5); Platelet Count (auto) 198 10^3/uL (140-450); Prothrombin Time 29.1 sec (9.3-11.8); Red Blood Cells 4.87 10^6/uL (4.5-5.90); Red Cell Distribution Width 15.1 % (11.8-14.3); White Blood Cell 9.4 10^3/uL (4.4-10.8)
[2024-04-24 07:52] LABS: Aspartate Aminotransferase 13 U/L (13-40); Blood Urea Nitrogen 29 mg/dL (9-23); Glucose 135 mg/dL (74-106)
[2024-04-24 08:00] VITALS: PULSE 75
[2024-04-24 08:54] VITALS: BP 135/75; PULSE 82; RESP 18; O2SAT 97
--- NOTE | 2024-04-24 13:19 | DVHDS2 ---
Discharge Summary Date of Admission Apr 20, 2024 at 22:47 Date of Discharge: Apr 24, 2024 Admitting Diagnosis Metabolic vs. Toxic Encephalopathy Labs/Diagnostic Data: Laboratory Results Test 04/24/24 06:01 04/21/24 09:00 04/20/24 22:06 04/20/24 19:03 White Blood Count 9.4 10^3/uL (4.4-10.8) Red Blood Count 4.87 10^6/uL (4.5-5.90) Hemoglobin 13.8 g/dL (13.5-17.5) Hematocrit 42.1 % (41.0-53.0) Mean Corpuscular Volume 86.4 fL (80.0-100.0) Mean Corpuscular Hemoglobin 28.3 pg (28.0-32.0) Mean Corpuscular Hemoglobin Concent 32.7 g/dL (32.0-36.0) Red Cell Distribution Width 15.1 % (11.8-14.3) Platelet Count 198 10^3/uL (140-450) Mean Platelet Volume 7.5 fL (6.9-10.8) Neutrophils (%) (Auto) 72.6 % (37.0-80.0) Lymphocytes (%) (Auto) 12.6 % (10.0-50.0) Monocytes (%) (Auto) 12.9 % (0.0-12.0) Eosinophils (%) (Auto) 1.2 % (0.0-7.0) Basophils (%) (Auto) 0.7 % (0.0-2.0) Neutrophils # (Auto) 6.8 10 ^3/uL (1.6-8.6) Lymphocytes # (Auto) 1.2 10 ^3/uL (0.4-5.4) Monocytes # (Auto) 1.2 10 ^3/uL (0-1.3) Eosinophils # (Auto) 0.1 10 ^3/uL (0-0.8) Basophils # (Auto) 0.1 10 ^3/uL (0-0.2) Nucleated Red Blood Cells 0.1 % Prothrombin Time 29.1 sec (9.3-11.8) Prothrombin Time INR 3.07 (0.9-1.15) Activated Partial Thromboplast Time 38.7 SEC (24.5-34.5) Sodium Level 144 mmol/L (136-145) Potassium Level 3.8 mmol/L (3.5-5.1) Chloride Level 106 mmol/L (98-107) Carbon Dioxide Level 28 mmol/L (20-31) Anion Gap 10 (5-15) Blood Urea Nitrogen 29 mg/dL (9-23) Creatinine 1.33 mg/dL (0.700-1.30) Glomerular Filtration Rate Calc 52 mL/min (>90) BUN/Creatinine Ratio 21.8 (10.0-20.0) Serum Glucose 135 mg/dL (74-106) Calcium Level 9.6 mg/dL (8.7-10.4) Total Bilirubin 0.9 mg/dL (0.2-1.0) Aspartate Amino Transferase (AST) 13 U/L (13-40) Alanine Aminotransferase (ALT) 10 U/L (7-40) Alkaline Phosphatase 59 U/L (46-116) Total Protein 7.1 g/dL (5.7-8.2) Albumin 4.0 g/dL (3.2-4.8) Urine Color Light-yellow (Yellow) Urine Clarity Clear (Clear) Urine pH 6.0 (5.0-9.0) Urine Specific [place] 1.014 (1.001-1.035) Urine Protein Negative (Negative) Urine Ketones Negative (Negative) Urine Blood Negative /uL (Negative) Urine Nitrite Negative (Negative) Urine Bilirubin Negative (Negative) Urine Urobilinogen Normal mg/dL (Negative) Urine Leukocyte Esterase Negative /uL (Negative) Urine RBC 2 /hpf (0 - 3) Urine Microscopic WBC < 1 /HPF (0-3) Urine Squamous Epithelial Cells None seen /hpf (<5) Urine Bacteria None seen /hpf (None Seen) Urine Glucose Normal mg/dL (Normal) Troponin I High Sensitivity 6 ng/L (</=54) B-Type Natriuretic Peptide 147.10 pg/mL (0-100) Test 04/20/24 18:50 Lactic Acid Level 1.3 mmol/L (0.4-2.0) Other Laboratory Tests 04/24/24 06:01 Brief Hx & Hospital Course: The patient is a 88-year-old male with past medical history of Alzheimer's disease, COPD, HLD, and MVP presented to [facility] ED accompanied by /caregiver for evaluation of chest pain shortness of breaths, and congestion. Patient was seen and evaluated in the ED, laboratory data shows WBC 7.4, platelets 205, sodium 140, potassium 4.4,, BUN 18, creatinine 1.20, GFR 59, glucose 140, troponin 5, lactic acid 1.3, BNP 147.10, PTT 34.5 INR 3.71, PTT 35.9, blood pressure 149/73, heart rate 72, temperature 97.2 F, O2 saturation 93% oxygen. Patients mental status was worsened from baseline. Patient at this time, has returned back to baseline and will be discharged home with his . Condition at Discharge: Poor Final Diagnosis/Problems List #Metabolic vs. 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; warfarin as per pharmacy; no warfarin for now due to supratherapeutic INR; continue monitoring #Supratherapeutic INR; worsening (3.71 -> 4.10); no signs/symptoms of active bleeding; continue monitoring #Status post pacemaker; telemetry; continue monitoring #Arrhythmias; to continue holding sotalol due to fluctuating heart rate; telemetry; continue monitoring #Dyslipidemia; to restart home simvastatin upon discharge; continue monitoring #Dementia; is caregiver; no behavioral changes at home; continue monitoring Discharge Disposition: Home Discharge Instruct/Medications Diet: Regular Activity: Light activity Follow Up/Referral: PCP Medications: resume home meds Discharge Statement: "Patient was advised to return to the ER or call 911 if any headaches, dizziness, shortness of breath, chest pain, abdominal pain, bleeding, fevers, or worsening of medical condition. Patient was counseled about treatment plan, medications, possible side effects, patientverbalized understanding. All questions were answered to the best of my ability. This discharge took greater then 30 minutes in planning, reviewing documentation, counseling the patient, and discussing with other team members." ASSESSMENT ASSESSMENT Assessment Date of Service: Apr 24, 2024 Billing Provider: MARCIN GARZA MD Common Visit Codes: [id number] DISCH DAY >30min MARCIN GARZA MD Apr 24, 2024 13:19
[2024-04-24 13:52] VITALS: BP 99/65; PULSE 91; RESP 17; TEMP 36.9; O2SAT 98
[2024-04-24] MEDS ORDERED: WARFARIN SODIUM 2.5 MG TAB PO ONE (17:00)
== END 2024-04-24 15:43 | disposition home or self-care (01) | DRG 308 ==
LOC: ER 18:33 → EDBD 18:33 → OVERFLOW 22:47 → TELE-CENTR 04-21 21:00
PROVIDERS: ADMIT Internal Medicine; ATTEND Internal Medicine
DX: I49.9 Cardiac arrhythmia, unspecified (principal); G92.8 Other toxic encephalopathy; G30.9 Alzheimer's disease, unspecified; J44.9 Chronic obstructive pulmonary disease, unspecified; E78.5 Hyperlipidemia, unspecified; F02.80 Dementia in other diseases classified elsewhere, unspecified severity, without behavioral disturbance, psychotic disturbance, mood disturbance, and anxiety; Z95.1 Presence of aortocoronary bypass graft; Z95.0 Presence of cardiac pacemaker; Z88.6 Allergy status to analgesic agent; Z88.5 Allergy status to narcotic agent; Z88.8 Allergy status to other drugs, medicaments and biological substances; Z79.899 Other long term (current) drug therapy
CPT/HCPCS: 36415; 71045; 80053; 81001; 83605; 83880; 84484; 85025; 85610; 85730; 93005; G0378